=== PATIENT | female | born 2005 | race Caucasian/White ===

== ENCOUNTER 2024-04-27 22:36 | Emergency (ER) | payer OTHER ==
[2024-04-27 23:08] LABS: APPEARANCE,URINE TURBID (Clear); BILIRUBIN,URINE 1+ (Negative); COLOR,URINE RED (Yellow); GLUCOSE,URINE NEGATIVE (Negative); KETONES,URINE TRACE (Negative); LEUKOCYTE ESTERASE,URINE 1+ (Negative); NITRITE,URINE NEGATIVE (Negative); OCCULT BLOOD,URINE 3+ (Negative); PROTEIN,URINE 3+ (Negative)
[2024-04-27 23:13] LABS: BACTERIA,URINE FEW /hpf (FEW); EPITHELIAL CELLS,URINE 0-5 /hpf (0-5); RBC,URINE >100 /hpf (0-5)
[2024-04-27 23:14] LABS: MUCUS,URINE NOT SEEN /hpf (FEW)
[2024-04-27] MEDS: Levofloxacin 500 MG Tab PO ONE (23:38)
[2024-04-27] MEDS: Phenazopyridine 95 MG Tab PO ONE (23:38)
[2024-04-28] MEDS ORDERED: Phenazopyridine 95 MG Tab PO ONE (23:29)
== END 2024-04-27 23:45 | disposition home or self-care (01) ==
LOC: JD.ED 22:36
DX: N30.01 Acute cystitis with hematuria (principal); F17.210 Nicotine dependence, cigarettes, uncomplicated; Z79.899 Other long term (current) drug therapy
CPT/HCPCS: 81001; 87086; 99283; A9270